=== PATIENT | female | born 1995 | race Hispanic/Latino ===

== ENCOUNTER 2020-10-24 22:33 | Emergency (ER) | payer OTHER ==
[~2020-10-24 22:33] MED LIST: NO HOME MEDS
[2020-10-25] MEDS ORDERED: ATIVAN1 MG PO (00:23)
[2020-10-25] MEDS ORDERED: ABILIFY10 M1 PO (00:23)
[2020-10-25] MEDS ORDERED: LEXAPRO10 MG PO (00:23)
[2020-10-25] MEDS ORDERED: PROAIR HFA IN (00:26)
[2020-10-25] MEDS ORDERED: FLONASE AL50 MCG/ACT NAB (00:26)
[2020-10-25] MEDS ORDERED: TEMAZEPAM30 MG PO (00:30)
[2020-10-25] MEDS ORDERED: ALL DAY ALLG10 MG PO (00:30)
[2020-10-25 02:58] VITALS: BP 133/78
== END 2020-10-25 02:58 | disposition home or self-care (01) | DRG 153 ==
LOC: ED 22:33
DX: J02.9 Acute pharyngitis, unspecified (principal); F17.210 Nicotine dependence, cigarettes, uncomplicated; Z20.822 Contact with and (suspected) exposure to COVID-19